=== PATIENT | male | born 1985 | race Hispanic/Latino ===

== ENCOUNTER 2017-07-05 06:38 | Emergency (ER) | payer MEDICARE, MEDICAID ==
[2017-07-05 07:02] VITALS: BMI 24.4
[2017-07-05 07:05] VITALS: BP 137/80; PULSE 80; RESP 16; TEMP 98; O2SAT 98
--- NOTE | 2017-07-05 07:18 | ED PDOC ---
Lower Extremity Pain/Injury Time Seen by Provider: 07/05/17 07:12 Chief Complaint (Nursing): Lower Extremity Problem/Injury History Per: Patient History/Exam Limitations: no limitations Onset/Duration Of Symptoms: Sudden Onset (1 week ago) Severity: Mild Legs Front+Back: 1 - pain at right great toe after trauma one week ago Additional History Per: Patient Additional Complaint(s): foot pain worse with movement and better with rest. no foot n/t/w Past Medical History Reviewed: Historical Data, Nursing Documentation, Vital Signs Vital Signs: Last Vital Signs Temp 98.0 F 07/05/17 07:02 Pulse 80 07/05/17 07:02 Resp 16 07/05/17 07:02 BP 137/80 07/05/17 07:02 Pulse Ox 98 07/05/17 07:02 - Family History Family History: States: Unknown Family Hx - Living Arrangements Living Arrangements: With Family - Social History Current smoker - smoking cessation education provided: No - Home Medications Home Medications: Ambulatory Orders Medication Instructions Recorded Naproxen 500 mg PO BID PRN #30 tab 07/05/17 - Allergies Allergies/Adverse Reactions: Allergies Allergy/AdvReac Type Severity Reaction Status Date / Time No Known Allergies Allergy Verified 07/05/17 07:02 Review of Systems ROS Statement: Except As Marked, All Systems Reviewed And Found Negative Constitutional: Negative for: Fever, Chills Musculoskeletal: Positive for: Foot Pain (right great toe) Neurological: Negative for: Weakness, Numbness Physical Exam - Reviewed Nursing Documentation Reviewed: Yes Vital Signs Reviewed: Yes - Physical Exam Appears: Positive for: Well Head Exam: Positive for: ATRAUMATIC, NORMAL INSPECTION, NORMOCEPHALIC Eye Exam: Positive for: Normal appearance Neck: Positive for: Normal, Painless ROM, Supple Pulses-Dorsalis Pedis (R): 2+ Pulses-Radial (R): 2+ Extremity: Positive for: Normal ROM, Tenderness (to right great toe phalanxx, achilles intact, small medial ingrown toe nail noted) Neurologic/Psych: Positive for: Alert, beamer helper II-XII, Oriented. Negative for: Motor/Sensory Deficits - ECG O2 Sat by Pulse Oximetry: 98 Pulse Ox Interpretation: Normal - Progress ED Course And Treament: foot xray 3 views possible non displaced fracture of distal phalanx, no dislocation no sts. Re-evaluation Time: 09:06 Condition: Improved Disposition - Clinical Impression Clinical Impression: Fracture of right great toe - Patient ED Disposition Is Patient to be Admitted: No Counseled Patient/Family Regarding: Studies Performed, Diagnosis, Need For Followup - Disposition Referrals: Podiatry Clinic [Outside] (2 to 3 days) Disposition: Routine/Home Disposition Time: 09:08 Condition: GOOD Prescriptions: Naproxen 500 mg PO BID PRN #30 tab PRN Reason: Pain, Moderate (4-7) Instructions: Toe Fracture (ED) Forms: [facility] ([place])
--- NOTE | 2017-07-05 15:00 | RAD ---
PROCEDURE: Right Foot Radiographs. HISTORY: trauma COMPARISON: None. FINDINGS: BONES: No discrete fracture identified. Soft tissue swelling 1st digit. JOINTS: Normal. SOFT TISSUES: Normal. OTHER FINDINGS: None. IMPRESSION: Soft tissue swelling without acute articular or osseous abnormality.
== END 2017-07-05 09:50 | disposition home or self-care (01) ==
LOC: H.ER 06:38
DX: S92.411A Displaced fracture of proximal phalanx of right great toe, initial encounter for closed fracture (principal); W22.8XXA Striking against or struck by other objects, initial encounter; Y92.89 Other specified places as the place of occurrence of the external cause

== ENCOUNTER 2018-10-13 03:27 | Emergency (ER) | payer MEDICARE, MEDICAID ==
[2018-10-13 03:37] VITALS: BMI 20.9
[2018-10-13 03:39] VITALS: RESP 18
--- NOTE | 2018-10-13 04:11 | ED PDOC ---
HPI: Psych/Substance Abuse Chief Complaint (Provider): substance abuse History Per: Patient, EMS Additional Complaint(s): 33 y/o male ambulates to ED with EMS for evaluation. 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 HPI limited due to current state <Taylor Steward - Last Filed: 10/13/18 05:51> <Viktoria Gupta - Last Filed: 10/13/18 08:09> Time Seen by Provider: 10/13/18 03:58 Chief Complaint (Nursing): Substance Abuse Past Medical History Reviewed: Historical Data, Nursing Documentation, Vital Signs Vital Signs: Last Vital Signs Temp 97.6 F 10/13/18 03:37 Pulse 106 H 10/13/18 03:37 Resp 18 10/13/18 03:37 BP 117/67 10/13/18 03:37 Pulse Ox 96 10/13/18 03:37 - Medical History PMH: No Chronic Diseases - Surgical History Surgical History: No Surg Hx - Family History Family History: States: Unknown Family Hx <Taylor Steward - Last Filed: 10/13/18 05:51> Vital Signs: Last Vital Signs Temp 98.0 F 10/13/18 07:38 Pulse 89 10/13/18 07:38 Resp 18 10/13/18 07:38 BP 123/70 10/13/18 07:38 Pulse Ox 99 10/13/18 07:38 <Viktoria Gupta - Last Filed: 10/13/18 08:09> - Home Medications Home Medications: Ambulatory Orders Medication Instructions Recorded Naproxen 500 mg PO BID PRN #30 tab 07/05/17 - Allergies Allergies/Adverse Reactions: Allergies Allergy/AdvReac Type Severity Reaction Status Date / Time No Known Allergies Allergy Verified 10/13/18 03:37 Review of Systems ROS Statement: Except As Marked, All Systems Reviewed And Found Negative <Taylor Steward - Last Filed: 10/13/18 05:51> Physical Exam - Reviewed Nursing Documentation Reviewed: Yes Vital Signs Reviewed: Yes - Physical Exam Appears: Positive for: Well, Non-toxic, No Acute Distress (sleeping) Head Exam: Positive for: ATRAUMATIC, NORMAL INSPECTION, NORMOCEPHALIC Skin: Positive for: Normal Color Eye Exam: Positive for: Normal appearance ENT: Positive for: Normal ENT Inspection Cardiovascular/Chest: Positive for: Regular Rate, Rhythm Respiratory: Positive for: Normal Breath Sounds Gastrointestinal/Abdominal: Positive for: Normal Exam Back: Positive for: Normal Inspection Extremity: Positive for: Normal ROM Neurologic/Psych: Positive for: Alert (responds to painful stimuli), Oriented (x2) <Taylor Steward - Last Filed: 10/13/18 05:51> - ECG O2 Sat by Pulse Oximetry: 96 - Progress ED Course And Treament: -accucheck -urine drug screen -cardiac care unit nurse <Taylor Steward - Last Filed: 10/13/18 05:51> Disposition - Disposition Disposition Time: 06:00 Patient Signed Over To: Viktoria Gupta Handoff Comments: pending sobriety and final dispo <Taylor Steward - Last Filed: 10/13/18 05:51> <Viktoria Gupta - Last Filed: 10/13/18 08:09> - Clinical Impression Clinical Impression: Substance abuse - Disposition Condition: STABLE Addendum Addendum: 10/13/18 08:07 Pt now awake and alert. Pt is able to state that he lives in [place] and was visiting [place] when he began to feel anxious. He states he was brought in by EMS. Pt able to provide his date of , knows he is in [place], and provides todays date. Pt to be discharged home and will follow up with PMD. <Viktoria Gupta - Last Filed: 10/13/18 08:09>
[2018-10-13 08:56] VITALS: BP 126/68; PULSE 84; TEMP 98.1; O2SAT 100
== END 2018-10-13 09:00 | disposition home or self-care (01) ==
LOC: H.ER 03:27
DX: F19.10 Other psychoactive substance abuse, uncomplicated (principal)